=== PATIENT | male | born 1985 | race Caucasian/White ===

== ENCOUNTER 2020-01-04 09:45 | Emergency (ER) | payer BC ==
[~2020-01-04] VITALS: Ht 182.9 cm; Wt 78.9 kg
[2020-01-04 10:01] VITALS: BP 120/79; Ht 182.9 cm; Wt 78.9 kg
== END 2020-01-04 10:49 | disposition home or self-care (01) ==
LOC: ED 09:45
DX: S49.92XA Unspecified injury of left shoulder and upper arm, initial encounter (principal); S50.311A Abrasion of right elbow, initial encounter; S60.511A Abrasion of right hand, initial encounter; J45.909 Unspecified asthma, uncomplicated; V00.131A Fall from skateboard, initial encounter; Y93.51 Activity, roller skating (inline) and skateboarding; Y92.89 Other specified places as the place of occurrence of the external cause; Y99.8 Other external cause status
CPT/HCPCS: Q0092